=== PATIENT | female | born 1960 | race Caucasian/White ===

== ENCOUNTER 2020-11-20 02:54 | Emergency (ER) | payer OTHER ==
[~2020-11-20] VITALS: Ht 160 cm; Wt 59.1 kg
[~2020-11-20 02:54] MED LIST: ASPIRIN325 MG PO; BAYER CHEWABLE81 MG PO; BENICAR20 MG PO; BRILINTA90 MG PO; CRESTOR20 MG PO; CYMBALTA30 MG PO; Crestor PO; FOLIC ACID1 MG PO; KEPPRA1000 MG PO; KEPPRA500 MG; LEVOTHYROXINE50 MCG PO; LYRICA75 MG PO; MAXALT MLT10 MG/TAB PO; NORVASC5 MG PO; PEPCID40 MG PO; PHENERGAN25 M1 PO; PHENOBARBITAL32.4 MG PO; PLAVIX75 MG PO; SYNTHROID25 MCG PO; TRAZODONE HCL50 MG PO; TRIBENZOR 40-11 EAC1; TRIBENZOR 40-11 EAC1 PO
[2020-11-20 02:55] VITALS: Ht 160 cm; Wt 59.1 kg
[2020-11-20 03:28] LABS: CALCIUM 9.1 mg/dL (8.5-10.1); CARBON DIOXIDE 29.3 mmol/L (21.0-32.0); CREATININE - SERUM 1.1 mg/dL (0.6-1.3); POTASSIUM - SERUM 4.3 mmol/L (3.5-5.1)
[2020-11-20 03:33] LABS: BASOPHILS 0.5 % (0-2); EOSINOPHILS 2.4 % (0-7); HEMATOCRIT 35.1 % (36.0-48.0); HEMOGLOBIN 11.2 g/dL (12-16); IMMATURE GRANULOCYTES 0.3 % (0-5); LYMPHOCYTE ABS# 1.52 10x3/uL (1.18-3.74); LYMPHOCYTES 26.6 % (15-50); MCH 29.1 pg (26.0-34.0); MCHC 31.9 g/dL (31.0-37.0); MCV 91.2 fL (80.0-100.0); MEAN PLATELET VOLUME 9.1 fL (7.4-10.4); MONOCYTES 10.1 % (2-11); NEUTROPHIL ABS# 3.43 10x3/uL (1.56-6.13); NEUTROPHILS 60.1 % (40-80); RBC 3.85 10x6/uL (4.00-5.40); RDW 14.2 % (11.5-14.5); WBC 5.7 10x3/uL (4.8-10.8)
[2020-11-20 03:34] LABS: ALBUMIN 3.8 g/dL (3.4-5.0); BILIRUBIN - TOTAL 0.23 mg/dL (0.2-1.3); PROTEIN - SERUM 7.2 g/dL (6.4-8.2)
[2020-11-20 03:37] LABS: APTT 27.7 SECONDS (22.8-39.4); INR 1.05 (0.85-1.17); PROTIME 12.6 SECONDS (11.6-15.0)
[2020-11-20 03:38] LABS: PLATELET COUNT 244 10x3/uL (130-400)
[2020-11-20 06:07] VITALS: BP 125/50
== END 2020-11-20 05:55 | disposition home or self-care (01) ==
LOC: D.ER 02:54
PROVIDERS: Family Medicine
DX: S01.01XA Laceration without foreign body of scalp, initial encounter (principal); Z86.73 Personal history of transient ischemic attack (TIA), and cerebral infarction without residual deficits; I10 Essential (primary) hypertension; K21.9 Gastro-esophageal reflux disease without esophagitis; W19.XXXA Unspecified fall, initial encounter; Y93.9 Activity, unspecified; Y92.9 Unspecified place or not applicable

== ENCOUNTER 2020-12-27 17:32 | Emergency (ER) | payer OTHER ==
[~2020-12-27] VITALS: Ht 160 cm; Wt 58.6 kg
[2020-12-27 17:42] VITALS: Ht 160 cm; Wt 58.6 kg
[2020-12-27 18:22] LABS: BASOPHILS 0.6 % (0-2); EOSINOPHILS 1.7 % (0-7); HEMATOCRIT 38.1 % (36.0-48.0); HEMOGLOBIN 12.5 g/dL (12-16); IMMATURE GRANULOCYTES 0.3 % (0-5); LYMPHOCYTE ABS# 2.48 10x3/uL (1.18-3.74); LYMPHOCYTES 38.2 % (15-50); MCH 29.2 pg (26.0-34.0); MCHC 32.8 g/dL (31.0-37.0); MEAN PLATELET VOLUME 9.5 fL (7.4-10.4); MONOCYTES 11.4 % (2-11); NEUTROPHILS 47.8 % (40-80); PLATELET COUNT 273 10x3/uL (130-400); RBC 4.28 10x6/uL (4.00-5.40); RDW 13.3 % (11.5-14.5); WBC 6.5 10x3/uL (4.8-10.8)
[2020-12-27 18:34] LABS: APTT 29.8 SECONDS (22.8-39.4); PROTIME 12.2 SECONDS (11.6-15.0)
[2020-12-27 18:36] LABS: CALC OSMOLALITY 282 mosm/kg (275-300); CALCIUM 9.5 mg/dL (8.5-10.1); CARBON DIOXIDE 28.6 mmol/L (21.0-32.0); CHLORIDE - SERUM 103 mmol/L (98-107); CREATININE - SERUM 1.1 mg/dL (0.6-1.3); GLUCOSE 87 mg/dL (74-106); POTASSIUM - SERUM 4.4 mmol/L (3.5-5.1); SODIUM 140 mmol/L (136-145); UREA NITROGEN 26 mg/dL (7-18); eGFR NON AFRICAN AMERICAN 54 mL/min (90-120)
[2020-12-27 18:53] LABS: ALBUMIN 4.4 g/dL (3.4-5.0); ALKALINE PHOSPHATASE 62 U/L (30-120); ALT (SGPT) 30 U/L (10-68); CKMB 1.1 U/L (0.0-3.6); CREATINE KINASE 116 UL (21-215); MAGNESIUM - SERUM 2.4 mg/dL (1.8-2.4); PROTEIN - SERUM 8.4 g/dL (6.4-8.2); THYROID STIMULATING HORMONE 24.89 uIU/mL (0.36-3.74)
[2020-12-27 18:56] LABS: TROPONIN-I < 0.017 ng/mL (0.000-0.060)
[2020-12-27 20:00] VITALS: BP 141/89
== END 2020-12-27 20:00 | disposition home or self-care (01) ==
LOC: D.ER 17:32
PROVIDERS: Student in an Organized Health Care Education/Training Program
DX: M54.12 Radiculopathy, cervical region (principal); R20.2 Paresthesia of skin; N18.9 Chronic kidney disease, unspecified; I12.9 Hypertensive chronic kidney disease with stage 1 through stage 4 chronic kidney disease, or unspecified chronic kidney disease; K21.9 Gastro-esophageal reflux disease without esophagitis